=== PATIENT | male | born 1990 | race Caucasian/White ===

== ENCOUNTER 2019-06-26 19:24 | Emergency (ER) | payer OTHER ==
--- NOTE | 2019-06-26 19:40 | UC ---
Respiratory Complaint HPI - HPI Summary HPI Summary: 28 yo male presents, accompanied by , with flu-like symptoms. Pt speaks limited Setswana, therefore translation is assisted by his with him today. They tell me that over the last 2 days pt has had fatigue, body aches, nausea, and diarrhea. Today vomited once. Has also had some sinus congestion and a dry cough. 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 Onset/Duration: Sudden Onset Severity Initially: Moderate Severity Currently: Moderate Pain Intensity: 6 Pain Scale Used: 0-10 Numeric - Allergies/Home Medications Allergies/Adverse Reactions: Allergies Allergy/AdvReac Type Severity Reaction Status Date / Time No Known Allergies Allergy Verified 06/26/19 19:48 Home Medications: Home Medications ARIPiprazole [Abilify Maintena] 200 mg IM MONTHLY 06/26/19 [History Confirmed ] PMH/Surg Hx/FS Hx/Imm Hx Psychological History: Anxiety - Surgical History Surgical History: None - Family History Known Family History: Positive: Cardiac Disease - Social History Occupation: Unemployed Lives: With Family Alcohol Use: None Substance Use Type: None Smoking Status (MU): Never Smoked Tobacco - Immunization History Most Recent Influenza Vaccination: Not the 2016/2016 Season Most Recent Tetanus Shot: ?2010 Review of Systems All Other Systems Reviewed And Are Negative: No Constitutional: Positive: Fever, Fatigue, Other - Body aches Skin: Positive: Negative Eyes: Positive: Negative ENT: Positive: Sinus Congestion Respiratory: Positive: Cough Cardiovascular: Positive: Negative Gastrointestinal: Positive: Diarrhea, Nausea Genitourinary: Positive: Negative Neurovascular: Positive: Negative Neurological: Positive: Negative Psychological: Positive: Negative Physical Exam - Summary Physical Exam Summary: GENERAL: NAD. Mildly ill appearing SKIN: No rashes, sores, lesions, or open wounds. HEENT: Head: AT/NC Eyes: EOM intact. Conjunctiva clear without inflammation or discharge. Ears: Hearing grossly normal. TMs intact, no bulging, erythema, or edema. Nose: Nasal mucosa pink and moist. NTTP maxillary and frontal sinus. Throat: Posterior oropharynx without exudates, erythema, or tonsillar enlargement. Uvula midline. NECK: Supple. Nontender. No lymphadenopathy. CHEST: CTAB. No r/r/w. No accessory muscle use. Breathing comfortably and in no distress. CV: Pulses intact. Cap refill <2seconds ABDOMEN: Soft NTTP NEURO: Alert. PSYCH: Age appropriate behavior. Triage Information Reviewed: Yes Vital Signs: Vital Signs: Temp Pulse Resp BP Pulse Ox 98.9 F 105 14 142/92 98 06/26/19 19:44 06/26/19 19:44 06/26/19 19:44 06/26/19 19:44 06/26/19 19:44 Laboratory Tests 06/26/19 19:59 Influenza B (Rapid) Positive A Vital Signs Reviewed: Yes Respiratory Course/Dx - Course Course Of Treatment: POC flu positive. Rx for zofran and advised to rest and drink plenty of fluids. - Differential Dx/Diagnosis Provider Diagnosis: Influenza Discharge ED - Sign-Out/Discharge Documenting (check all that apply): Patient Departure All imaging exams completed and their final reports reviewed: No Studies - Discharge Plan Condition: Stable Disposition: HOME Prescriptions: Ondansetron ODT TAB* [Zofran 4 MG Odt TAB*] 4 mg PO Q8H PRN #9 tab.odt PRN Reason: Nausea Patient Education Materials: Influenza (ED) Print Language: BELARUSIAN Referrals: Chelsea Boss PA [Primary Care Provider] - Additional Instructions: If you develop a fever, shortness of breath, chest pain, new or worsening symptoms - please call your PCP or go to the ED immediately. Your blood pressure was high at todays visit. Please see your primary provider within 4 weeks for recheck and re-evaluation. Rest and drink plenty of water. May continue taking dayquill/nyquill as directed for your symptoms - Billing Disposition and Condition Condition: STABLE Disposition: Home
[2019-06-26 19:48] VITALS: BP 142/92
[2019-06-26 20:02] LABS: Influenza B Molecular POSITIVE (Negative)
== END 2019-06-26 20:16 | disposition home or self-care (01) ==
LOC: UCCORT 19:24
DX: J11.1 Influenza due to unidentified influenza virus with other respiratory manifestations (principal); R19.7 Diarrhea, unspecified; R11.0 Nausea; F41.9 Anxiety disorder, unspecified; Z79.899 Other long term (current) drug therapy
CPT/HCPCS: 99212; G0463